=== PATIENT | male | born 1985 | race Caucasian/White ===

== ENCOUNTER 2019-11-24 10:00 | Inpatient (IN) | payer MEDICAID ==
[~2019-11-24] VITALS: Ht 177.8 cm; Wt 91.6 kg
[2019-11-24] MEDS ORDERED: QUET25TA PO (10:40)
[2019-11-24] MEDS ORDERED: DIVA-76 PO (10:40)
[2019-11-24] MEDS ORDERED: PROP10TA73 PO (10:40)
[2019-11-24] MEDS ORDERED: LORazepam 1 MG TABLET PO ONE (11:15)
[2019-11-24] MEDS ORDERED: QUEtiapine FUMARATE 100 MG TABLET PO ONE (11:15)
[2019-11-24] MEDS ORDERED: QUEtiapine FUMARATE 100 MG TABLET PO PRN (11:30)
[2019-11-24] MEDS ORDERED: ZOLPIDEM TARTRATE 10 MG TABLET PO PRN (11:30)
[2019-11-24] MEDS ORDERED: LORazepam 2 MG TABLET PO PRN (11:30)
[2019-11-24 11:53] LABS: APPEARANCE,URINE CLEAR (CLEAR); BILIRUBIN,URINE NEGATIVE (NEGATIVE); GLUCOSE, URINE (UA) NEGATIVE (NEGATIVE); KETONES,URINE NEGATIVE (NEGATIVE); LEUKOCYTE ESTERASE ,URINE NEGATIVE (NEGATIVE); NITRATE,URINE NEGATIVE (NEGATIVE); OCCULT BLOOD,URINE TRACE (NEGATIVE); PROTEIN,URINE NEGATIVE (NEGATIVE); UROBILINOGEN,URINE 0.2 mg/dL (<=1.0)
[2019-11-24 12:05] LABS: AMPHET/METH SCREEN,URINE NEGATIVE (NEGATIVE); BARBITURATE SCREEN, URINE NEGATIVE (NEGATIVE); BENZODIAZEPINES SCREEN,URINE NEGATIVE (NEGATIVE); CANNABINOID SCREEN,URINE NEGATIVE (NEGATIVE); COCAINE SCREEN,URINE NEGATIVE (NEGATIVE); METHADONE SCREEN, URINE NEGATIVE (NEGATIVE); OPIATE SCREEN,URINE NEGATIVE (NEGATIVE)
[2019-11-24 12:07] LABS: PHENCYCLIDINE SCREEN,URINE NEGATIVE (NEGATIVE)
[2019-11-24 12:12] LABS: BACTERIA,URINE None Seen /HPF (None Seen); RBC,URINE 0-2 /HPF (0-2); WBC,URINE None Seen /HPF (0-5)
[2019-11-24 12:57] LABS: BASOPHILS % (AUTO) 0.5 % (0.0-2.0); EOSINOPHILS % (AUTO) 0.8 % (1.0-6.0); HEMATOCRIT 46.3 % (41-53); HEMOGLOBIN 15.5 g/dL (13.5-17.5); LYMPHOCYTES % (AUTO) 25.8 % (22.0-44.0); MEAN CORPUSCULAR HEMOGLOBIN 32.4 pg (26.0-34.0); MEAN CORPUSCULAR HGB CONC 33.5 G/dL (31.0-37.0); MEAN CORPUSCULAR VOLUME 97 fL (80-100); MONOCYTES # (AUTO) 0.5 K/uL (0.1-1.0); NEUTROPHILS # (AUTO) 5.1 K/uL (1.8-7.7); NEUTROPHILS % (AUTO) 66.9 % (40.0-70.0); PLATELET COUNT (AUTO) 176 K/uL (150-450); RED BLOOD CELL COUNT(AUTO) 4.78 MIL/uL (4.50-5.90); RED CELL DISTRIBUTION WIDTH 14.3 % (11.5-14.5)
[2019-11-24 13:08] LABS: ANION GAP 4 mmol/L (8-16); CALCIUM, TOTAL 9.1 mg/dL (8.8-10.5); CARBON DIOXIDE 32 mmol/L (22-29); CHLORIDE 103 mmol/L (98-107); CREATININE 0.89 mg/dL (0.60-1.30); GLOMERULAR FILTR. RATE CALC > 60 mL/min (>60); GLUCOSE,RANDOM 98 mg/dL (70-110); POTASSIUM 4.7 mmol/L (3.5-5.1); SODIUM SERUM 139 mmol/L (136-145); UREA NITROGEN, BLOOD 17 mg/dL (7-18)
[2019-11-24 13:14] LABS: ALANINE AMINOTRANSFERASE 50 U/L (12-78); ALBUMIN 3.4 g/dL (3.4-5.0); ALKALINE PHOSPHATASE 68 U/L (46-116); ASPARTATE AMINOTRANSFERASE 17 U/L (15-37); BILIRUBIN,TOTAL 0.2 mg/dL (0.1-1.0); TOTAL PROTEIN, SERUM 6.9 g/dL (6.4-8.2)
[2019-11-24] MEDS ORDERED: DOCUSATE SODIUM 100 MG CAPSULE PO PRN (14:00)
[2019-11-24] MEDS ORDERED: CloNIDine HCL 0.1 MG TABLET PO PRN (14:00)
[2019-11-24] MEDS ORDERED: MAGNESIUM HYDROXIDE SUSPENSION 30 ML UDCUP PO PRN (14:00)
[2019-11-24] MEDS ORDERED: LOPERAMIDE HCL 2 MG CAPSULE PO PRN (14:00)
[2019-11-24] MEDS ORDERED: ALBUTEROL SULFATE HFA 90 MCG/PUFF 8 GM INHALER IH PRN (14:00)
[2019-11-24] MEDS ORDERED: PETROLATUM,WHITE 28 GM JELLY TP PRN (14:00)
[2019-11-24] MEDS ORDERED: ONDANSETRON HCL 4 MG TABLET PO PRN (14:00)
[2019-11-24] MEDS ORDERED: IBUPROFEN 400 MG TABLET PO PRN (14:00)
[2019-11-24] MEDS ORDERED: ACETAMINOPHEN 325 MG TABLET PO PRN (14:00)
[2019-11-24] MEDS ORDERED: NICOTINE 14 MG/24 HOUR PATCH TD PRN (14:00)
[2019-11-24] MEDS ORDERED: MAG HYDROX/AL HYDROX/SIMETH ES 30 ML SUSPENSION UDCUP PO PRN (14:00)
[2019-11-24] MEDS ORDERED: GuaiFENesin/D-METHORPHAN [SUGAR-FREE] 200-20MG/10 ML SYRUP UDCUP PO PRN (14:00)
[2019-11-24 14:13] VITALS: BP 117/81
[2019-11-25 08:20] VITALS: BP 115/81
[2019-11-25] MEDS ORDERED: INFLUENZA VIRUS VACCINE QVS 2019-20 (3YR+)/PF 60 MCG/0.5 ML SYRINGE IM ONE (12:00)
[2019-11-25] MEDS: NICOTINE 21 MG/24 HOUR PATCH TD SCH (12:06)
[2019-11-25 18:01] VITALS: BP 141/78
[2019-11-25] MEDS: QUEtiapine FUMARATE 200 MG TABLET PO SCH (20:31)
[2019-11-26] MEDS: PROPRANOLOL HCL 10 MG TABLET PO SCH (10:21)
[2019-11-26] MEDS: DIVALPROEX SODIUM 250 MG DR TABLET PO SCH (10:21)
[2019-11-26] MEDS: NICOTINE 21 MG/24 HOUR PATCH TD SCH (10:24)
[2019-11-26 18:01] VITALS: BP 139/68
[2019-11-26] MEDS: QUEtiapine FUMARATE 200 MG TABLET PO SCH (20:29)
[2019-11-27] MEDS: DIVALPROEX SODIUM 250 MG DR TABLET PO SCH (08:15)
[2019-11-27] MEDS: NICOTINE 21 MG/24 HOUR PATCH TD SCH (08:15)
[2019-11-27] MEDS: PROPRANOLOL HCL 10 MG TABLET PO SCH (08:16)
[2019-11-27 09:27] VITALS: BP 143/90
[2019-11-27 16:19] VITALS: BP 105/67
[2019-11-27] MEDS: QUEtiapine FUMARATE 200 MG TABLET PO SCH (20:38)
[2019-11-28 08:30] VITALS: BP 145/74
[2019-11-28] MEDS: DIVALPROEX SODIUM 250 MG DR TABLET PO SCH (09:49)
[2019-11-28] MEDS: PROPRANOLOL HCL 10 MG TABLET PO SCH (09:50)
[2019-11-28] MEDS: NICOTINE 21 MG/24 HOUR PATCH TD SCH (09:50)
[2019-11-28 17:04] VITALS: BP 135/60
[2019-11-28] MEDS: QUEtiapine FUMARATE 200 MG TABLET PO SCH (20:33)
[2019-11-29] MEDS: PROPRANOLOL HCL 10 MG TABLET PO SCH (08:19)
[2019-11-29] MEDS: DIVALPROEX SODIUM 250 MG DR TABLET PO SCH (08:20)
[2019-11-29] MEDS: NICOTINE 21 MG/24 HOUR PATCH TD SCH (08:24)
[2019-11-29 09:26] VITALS: BP 110/63
[2019-11-29 19:00] VITALS: BP 103/61
[2019-11-29] MEDS: QUEtiapine FUMARATE 200 MG TABLET PO SCH (20:16)
[2019-11-30 08:41] VITALS: BP 112/73
[2019-11-30] MEDS: NICOTINE 21 MG/24 HOUR PATCH TD SCH (08:50)
[2019-11-30] MEDS: PROPRANOLOL HCL 10 MG TABLET PO SCH (08:51)
[2019-11-30] MEDS ORDERED: DIVALPROEX SODIUM 500 MG DR TABLET PO SCH (09:00)
[2019-11-30] MEDS ORDERED: QUET200T PO (13:38)
[2019-11-30 16:18] VITALS: BP 135/81
== END 2019-11-30 16:45 | disposition home or self-care (01) | DRG 885 ==
LOC: EMS 10:03 → 3EC 12:23
PROVIDERS: ADMIT Psychiatry & Neurology Child & Adolescent Psychiatry; ATTEND Psychiatry & Neurology Child & Adolescent Psychiatry
DX: F25.1 Schizoaffective disorder, depressive type (principal); R45.851 Suicidal ideations; F10.10 Alcohol abuse, uncomplicated; F17.210 Nicotine dependence, cigarettes, uncomplicated; F15.90 Other stimulant use, unspecified, uncomplicated
CPT/HCPCS: G0480